=== PATIENT | female | born 1950 | race Caucasian/White ===

== ENCOUNTER 2017-01-31 18:58 | Emergency (ER) | payer MEDICARE ==
[2017-01-31] MEDS ORDERED: Tetan/Diph/Pertus SYR(Tdap)* 0.5 ML SYR(BOOSTRIX) use SYR IM ONE (19:24)
[2017-01-31 19:26] VITALS: BP 130/61
--- NOTE | 2017-01-31 19:35 | UC ---
Bite Injury/Animal HPI - HPI Summary HPI Summary: dog bite left ankle x 2 days ago the area is tender, swollen + white discharge this morning no fever, no chills - History of Current Complaint Chief Complaint: UCSkin Stated Complaint: DOG BITE-THURSDAY Time Seen by Provider: 01/31/17 19:20 Hx Obtained From: Patient Severity Currently: Moderate Severity Initially: Moderate Onset/Duration: Sudden Onset, Lasting Days - 2, Still Present Type of Bite: Pet - sisters dog Has Animal Been Immunized?: No Character: Abrasion/Laceration Aggravating Factor(s): Nothing Alleviating Factor(s): Nothing Associated Signs And Symptoms: Positive: Negative Animal Available for Observation: Yes Animal Control Notified: Yes - Allergies/Home Medications Allergies/Adverse Reactions: Allergies Allergy/AdvReac Type Severity Reaction Status Date / Time Penicillins Allergy Severe Swelling Verified 01/31/17 19:19 Sulfa Antibiotics Allergy Intermediate Rash And Verified 01/31/17 19:19 Itching Home Medications: Home Medications Hydrochlorothiazide TAB* [Hydrodiuril TAB*] 25 mg PO DAILY 01/31/17 [History Confirmed 01/31/17] Omeprazole CAP* [Prilosec CAP* 20 MG] 20 mg PO DAILY 01/31/17 [History Confirmed 01/31/17] Ranitidine HCl [Zantac] 300 mg PO DAILY 01/31/17 [History Confirmed 01/31/17] PMH/Surg Hx/FS Hx/Imm Hx Previously Healthy: Yes - Surgical History Surgical History: Yes Surgery Procedure, Year, and Place: HYSTERECTOMY 1977. RIGHT OVARY REMOVED 1981. HERNIATED CERVICAL DISC FUSSION. LEFT SHOULDER SURGERY. BREAST REDUCTION. RIGHT SHOULDER ROTATOR CUFF REPAIR - Family History Known Family History: Negative: Diabetes - Social History Alcohol Use: Rare Substance Use Type: None Smoking Status (MU): Former Smoker Type: Cigarettes When Did the Patient Quit Smoking/Using Tobacco: 37 YRS AGO - Immunization History Most Recent Influenza Vaccination: NOT THIS SEASON Most Recent Tetanus Shot: 2009 Review of Systems Constitutional: Negative Skin: Negative Eyes: Negative ENT: Negative Respiratory: Negative All Other Systems Reviewed And Are Negative: Yes Physical Exam Triage Information Reviewed: Yes Appearance: Well-Appearing, No Pain Distress, Well-Nourished Vital Signs: Initial Vital Signs Temp 98.5 F 01/31/17 19:05 Pulse 77 01/31/17 19:05 Resp 12 06/10/17 19:05 BP 130/61 01/31/17 19:05 Pulse Ox 98 01/31/17 19:05 Vital Signs Reviewed: Yes Eye Exam: Normal Eyes: Positive: Conjunctiva Clear ENT: Positive: Normal ENT inspection, Hearing grossly normal, Pharynx normal Neck exam: Normal Neck: Positive: Supple, Nontender, No Lymphadenopathy Respiratory: Positive: Chest non-tender, Lungs clear, Normal breath sounds Cardiovascular: Positive: RRR, No Murmur, Pulses Normal Skin: Positive: Other - dog bite site left ankle: + abrastion, swollen , tender , mild erythema, no discharge Bite Injury Course/Dx - Differential Dx/Diagnosis Provider Diagnoses: abration left ankle. dog bite left ankle Discharge - Discharge Plan Condition: Stable Disposition: HOME Prescriptions: Clindamycin Cap(NF) [Cleocin 300 mg Cap(NF)] 300 mg PO Q6H #28 cap Patient Education Materials: Animal Bite (ED) Referrals: Neisha Arambula PA [Primary Care Provider] - 7 Days
== END 2017-01-31 19:39 | disposition home or self-care (01) ==
LOC: UCCORT 18:58
DX: S90.512A Abrasion, left ankle, initial encounter (principal); S91.052A Open bite, left ankle, initial encounter; W54.0XXA Bitten by dog, initial encounter; Y92.9 Unspecified place or not applicable; Z87.891 Personal history of nicotine dependence; Z88.0 Allergy status to penicillin; Z88.2 Allergy status to sulfonamides
CPT/HCPCS: 90471; 90715; 99212; G0463

== ENCOUNTER 2017-07-11 09:24 | Emergency (ER) | payer MEDICARE ==
[2017-07-11 10:49] VITALS: BP 146/83
--- NOTE | 2017-07-11 11:04 | UC ---
Throat Pain/Nasal Pablo HPI - HPI Summary HPI Summary: 66 y/o female presents to the urgent care c/o sinus congestion, fever, B/L ear pain and dry cough for the past week. Pt reports she has been coughing a lot for the past 2 days that her left side of upper back hurts. Pt saw intertype operator about 3 weeks Dx with conjunctivitis. She has fever of 102F last Thursday, she took tylenol PO and it resolved. She is taking Mucinex PO to alleviate cough. sinus pain is 5/10 associated with CONLEY. Pt denies SOB, chest pain, N/V/D or abdominal pain. - History of Current Complaint Chief Complaint: UCRespiratory Stated Complaint: SINUS CONGESTION Time Seen by Provider: 07/11/17 11:01 Hx Obtained From: Patient Hx Last Menstrual Period: menopausal ?: No Onset/Duration: Gradual Onset, Lasting Weeks - 1 week, Still Present Severity: Moderate Pain Intensity: 5 Pain Scale Used: 0-10 Numeric Cough: Nonproductive Associated Signs & Symptoms: Positive: Sinus Discomfort, Nasal Discharge - green discharge, Fever - Epiglottits Risk Factors Epiglottis Risk Factors: Negative - Allergies/Home Medications Allergies/Adverse Reactions: Allergies Allergy/AdvReac Type Severity Reaction Status Date / Time Penicillins Allergy Severe Swelling Verified 07/11/17 10:49 Sulfa Antibiotics Allergy Intermediate Rash And Verified 07/11/17 10:49 Itching Home Medications: Home Medications Acetaminophen 1,000 mg PO Q4H PRN 07/11/17 [History Confirmed 07/11/17] Ydotaqdemagvo-Jjtsugllswjel-Bd [Mucinex Sinus-Max Pressur 5-325-200 mg] 1 tab PO Q4H PRN 07/11/17 [History Confirmed 07/11/17] PMH/Surg Hx/FS Hx/Imm Hx Previously Healthy: Yes GI/ History: Gastroesophageal Reflux - Surgical History Surgical History: Yes Surgery Procedure, Year, and Place: HYSTERECTOMY 1977. RIGHT OVARY REMOVED 1981. HERNIATED CERVICAL DISC FUSSION. LEFT SHOULDER SURGERY. BREAST REDUCTION. RIGHT SHOULDER ROTATOR CUFF REPAIR - Family History Known Family History: Positive: None - Pt denies FMHX Negative: Diabetes - Social History Occupation: Retired Lives: With Family Alcohol Use: Rare Substance Use Type: None Smoking Status (MU): Former Smoker Type: Cigarettes When Did the Patient Quit Smoking/Using Tobacco: 37 YRS AGO - Immunization History Most Recent Influenza Vaccination: NOT THIS SEASON Most Recent Tetanus Shot: 2009 Review of Systems Constitutional: Fever - at home Skin: Negative Eyes: Eye Redness - mild RT eye redness ENT: Ear Ache - B/L ear pain, Nasal Discharge, Sinus Congestion, Sinus Pain/ Tenderness Respiratory: Cough - dry Cardiovascular: Negative Gastrointestinal: Negative Genitourinary: Negative Motor: Negative Neurovascular: Negative Musculoskeletal: Negative Neurological: Headache Psychological: Negative Is Patient Immunocompromised?: No All Other Systems Reviewed And Are Negative: Yes Physical Exam Triage Information Reviewed: Yes Vital Signs: Initial Vital Signs Temp 97.8 F 07/11/17 10:41 Pulse 75 07/11/17 10:41 Resp 20 07/11/17 10:41 BP 146/83 07/11/17 10:41 Pulse Ox 98 07/11/17 10:41 - Additional Comments Vitals: reviewed General: Well developed, well-nourished female patient with NAD. Head and face: Normocephalic and atraumatic, Positive tenderness over the frontal and maxillary sinuses.. Eyes: PERRLA, EOMI x 2. Normal conjunctiva. No eye discharge. ENT: Ears and TM with normal limits. Nose: with yellowish discharge and erythematous mucosa. Pharynx with erythema, no exudate. Neck: Supple, no JVD, no carotid bruits and no lymphadenopathy. Lungs: clear, no rales, no rhonchi, no wheezes. CVS: RRR, S1 and S2 present no murmurs or gallops appreciated. Abdomen: soft nontender with positive bowel sounds. Extremities: no edema noted. Neuro: WNL. Skin: warm and dry Throat Pain/Nasal Course/Dx - Course Course Of Treatment: 66 y/o female presents to the urgent care c/o sinus congestion, fever, B/L ear pain and dry cough for the past week. Pt reports she has been coughing a lot for the past 2 days that her left side of upper back hurts. Pt saw intertype operator about 3 weeks Dx with conjunctivitis. She has fever of 102F last Thursday, she took tylenol PO and it resolved. She is taking Mucinex PO to alleviate cough. sinus pain is 5/10 associated with CONLEY. Pt denies SOB, chest pain, N/V/D or abdominal pain.Hx obtained. Pt with bacterial sinusitis on examination. Pt with 3 weeks of symptoms getting worse. Pt Rx Doxycycline PO and flonase nasal spray. Discharge instructions explained to Pt. Advised to Return to the clinic or PCP if symptoms do not improve.Pt understood and agreed with plan of care. - Differential Dx/Diagnosis Differential Diagnosis/HQI/PQRI: Influenza, Laryngitis, Otitis Media, Pharyngitis, Sinusitis, Tonsillitis, URI Provider Diagnoses: 1- Acute bacterial Sinusitis. 2-Cough. 3-Elevated BP w/o Hx of HTN Discharge - Discharge Plan Condition: Stable Disposition: HOME Prescriptions: DOXYcycline CAP(*) [DOXYcycline 100MG CAP(*)] 100 mg PO BID #20 cap Fluticasone NASAL SPRAY 50MCG* [Flonase NASAL SPRAY 50MCG*] 2 spray BOTH NARES DAILY #1 btl Patient Education Materials: Sinusitis (ED), Low Sodium Diet (ED) Referrals: Neisha Arambula PA [Primary Care Provider] - Additional Instructions: 1- Please increase fluid intake, eat well and rest. take full course of antibiotic to avoid resistance 2-Use Flonase as directed to help drain fluid. Also buy saline drops to clear sinuses 3-Continue taking Mucinex PO to alleviate sinus congestion and cough 4-Return to the clinic or PCP if symptoms do not improve for further management and treatment 5- Your BP is elevated today, please decrease salt in your diet and monitor BP at home, if it continues to be elevated f/u with your PCP for further management
== END 2017-07-11 11:32 | disposition home or self-care (01) ==
LOC: UCCORT 09:24
DX: J01.90 Acute sinusitis, unspecified (principal); R05 Cough; R03.0 Elevated blood-pressure reading, without diagnosis of hypertension; K21.9 Gastro-esophageal reflux disease without esophagitis; Z90.710 Acquired absence of both cervix and uterus; Z88.0 Allergy status to penicillin; Z88.2 Allergy status to sulfonamides; Z87.891 Personal history of nicotine dependence
CPT/HCPCS: 99212; G0463

== ENCOUNTER 2017-07-20 13:51 | Emergency (ER) | payer MEDICARE ==
[2017-07-20 14:44] VITALS: BP 118/63
--- NOTE | 2017-07-20 14:58 | UC ---
Throat Pain/Nasal Pablo HPI - HPI Summary HPI Summary: Pt presents with sinus symptoms. She tells me that she was seen here on 07/11 for sinus complaints and prescribed Doxycycline. She took 3 days of the antibiotic and each day had significant nausea and abdominal cramping. She stopped taking the anbx and her nausea and abdominal discomfort went away. Has been taking mucinex OTC with mild relief. She presents today with continued sinus congestion, pain, pressure, headache, chills, and fatigue. Denies fever, cough, SOB, chest pain, abdominal pain, N/V/D/C. - History of Current Complaint Chief Complaint: UCGeneralIllness Stated Complaint: RE-CK SINUS COMPLAINT Time Seen by Provider: 07/20/17 14:57 Hx Obtained From: Patient Hx Last Menstrual Period: menopausal ?: No Onset/Duration: Gradual Onset Severity: Moderate Pain Intensity: 4 Pain Scale Used: 0-10 Numeric Cough: Nonproductive - Allergies/Home Medications Allergies/Adverse Reactions: Allergies Allergy/AdvReac Type Severity Reaction Status Date / Time Penicillins Allergy Severe Swelling Verified 07/20/17 14:45 Sulfa Antibiotics Allergy Intermediate Rash And Verified 07/20/17 14:45 Itching PMH/Surg Hx/FS Hx/Imm Hx Previously Healthy: Yes GI/ History: Gastroesophageal Reflux - Surgical History Surgical History: Yes Surgery Procedure, Year, and Place: HYSTERECTOMY 1977. RIGHT OVARY REMOVED 1981. HERNIATED CERVICAL DISC FUSSION. LEFT SHOULDER SURGERY. BREAST REDUCTION. RIGHT SHOULDER ROTATOR CUFF REPAIR - Family History Known Family History: Positive: None - Pt denies FMHX Negative: Diabetes - Social History Occupation: Retired Lives: With Family Alcohol Use: Rare Substance Use Type: None Smoking Status (MU): Former Smoker Type: Cigarettes When Did the Patient Quit Smoking/Using Tobacco: 37 YRS AGO - Immunization History Most Recent Influenza Vaccination: NOT THIS SEASON Most Recent Tetanus Shot: 2009 Review of Systems Constitutional: Chills, Fatigue Skin: Negative Eyes: Negative ENT: Nasal Discharge, Sinus Congestion, Sinus Pain/Tenderness Respiratory: Negative Cardiovascular: Negative Gastrointestinal: Negative Genitourinary: Negative Neurological: Headache All Other Systems Reviewed And Are Negative: Yes Physical Exam Triage Information Reviewed: Yes Appearance: Well-Appearing, Well-Nourished Vital Signs: Initial Vital Signs Temp 98 F 07/20/17 14:37 Pulse 77 07/20/17 14:37 Resp 14 07/20/17 14:37 BP 118/63 07/20/17 14:37 Pulse Ox 99 07/20/17 14:37 Vital Signs Reviewed: Yes Eyes: Positive: Conjunctiva Clear. Negative: Conjunctiva Inflamed, Discharge ENT: Positive: Hearing grossly normal, Pharynx normal, Nasal congestion, Nasal drainage, TMs normal, Sinus tenderness, Uvula midline. Negative: Pharyngeal erythema, TM bulging, TM dull, TM red, Tonsillar swelling, Tonsillar exudate Neck: Positive: Supple, Nontender, No Lymphadenopathy Respiratory: Positive: Chest non-tender, Lungs clear, Normal breath sounds, No respiratory distress, No accessory muscle use Cardiovascular: Positive: RRR, No Murmur, Pulses Normal Neurological: Positive: Alert Psychological: Positive: Age Appropriate Behavior Skin: Negative: rashes Throat Pain/Nasal Course/Dx - Course Course Of Treatment: Sinusitis - given her allergies or adverse reactions to pcn , sulfa, and doxy..will try zpak. - Differential Dx/Diagnosis Differential Diagnosis/HQI/PQRI: Influenza, Mononucleosis, Sinusitis, URI Provider Diagnoses: sinusitis Discharge - Discharge Plan Condition: Stable Disposition: HOME Prescriptions: Azithromycin TAB* [Zithromax TAB (Z-YOLA) 250 mg #6 tabs] 2 tab PO .TODAY, THEN 1 DAILY #1 yola Patient Education Materials: Sinusitis (ED) Referrals: Neisha Arambula PA [Primary Care Provider] - Additional Instructions: If you develop a fever, SOB, chest pain, new or worsening symptoms - please call your PCP or go to the ED.
== END 2017-07-20 15:18 | disposition home or self-care (01) ==
LOC: UCCORT 13:51
DX: J32.9 Chronic sinusitis, unspecified (principal); Z88.0 Allergy status to penicillin; Z88.2 Allergy status to sulfonamides; K21.9 Gastro-esophageal reflux disease without esophagitis; Z87.891 Personal history of nicotine dependence
CPT/HCPCS: 99212; G0463

== ENCOUNTER 2017-11-12 08:39 | Emergency (ER) | payer MEDICARE ==
[2017-11-12 09:08] VITALS: BP 110/70
--- NOTE | 2017-11-12 09:34 | UC ---
FLU HPI - HPI Summary HPI Summary: 67 year old female with cough and cold . FEVER, SINUS AND CHEST CONGESTION WELL PRODUCTIVE COUGH, SORE THROAT, EAR ACHES AND CHILLS X8 DAYS. No CP or SOB . Has had left ear pressure and sinus pressure for the past few days. OTC meds not helping. has loss of voice last week as well and coughing a lot at this time. [ End ] - History of Current Complaint Chief Complaint: UCGeneralIllness Stated Complaint: FEVER,CHILLS,COUGH Time Seen by Provider: 11/12/17 09:09 Hx Obtained From: Patient Hx Last Menstrual Period: menopausal ?: No Onset/Duration: Gradual Onset Severity Currently: Mild Severity Initially: Moderate Pain Intensity: 2 Associated Signs & Symptoms: Positive: T Max - 102 yesterday Related Hx: Possible Flu/Infectious Exposure - Allergy/Home Medications Allergies/Adverse Reactions: Allergies Allergy/AdvReac Type Severity Reaction Status Date / Time Penicillins Allergy Swelling Verified 11/12/17 08:59 Sulfa (Sulfonamide Allergy Rash And Verified 11/12/17 08:59 Antibiotics) Itching Home Medications: Home Medications guaiFENesin [Mucinex] 11/12/17 [History] [id number] [Metronidazole] 11/12/17 [History] PMH/Surg Hx/FS Hx/Imm Hx Previously Healthy: Yes GI/ History: Gastroesophageal Reflux - Surgical History Surgical History: Yes Surgery Procedure, Year, and Place: HYSTERECTOMY 1977. RIGHT OVARY REMOVED 1981. HERNIATED CERVICAL DISC FUSSION. LEFT SHOULDER SURGERY. BREAST REDUCTION. RIGHT SHOULDER ROTATOR CUFF REPAIR - Family History Known Family History: Positive: None - Pt denies FMHX Negative: Diabetes - Social History Occupation: Retired Lives: With Family Alcohol Use: Rare Substance Use Type: None Smoking Status (MU): Former Smoker Type: Cigarettes When Did the Patient Quit Smoking/Using Tobacco: 37 YRS AGO - Immunization History Most Recent Influenza Vaccination: NOT THIS SEASON Most Recent Tetanus Shot: 2009 Review of Systems Constitutional: Fever, Chills, Fatigue ENT: Sore Throat, Ear Ache, Nasal Discharge, Sinus Congestion, Sinus Pain/ Tenderness Respiratory: Cough Is Patient Immunocompromised?: No All Other Systems Reviewed And Are Negative: Yes Physical Exam Triage Information Reviewed: Yes Appearance: Well-Appearing, No Pain Distress, Well-Nourished Vital Signs: Initial Vital Signs Temp 97.3 F 11/12/17 08:57 Pulse 81 11/12/17 08:57 Resp 16 11/12/17 08:57 BP 110/70 11/12/17 08:57 Pulse Ox 95 11/12/17 08:57 Vital Signs Reviewed: Yes Eye Exam: Normal ENT Exam: Normal ENT: Positive: Nasal drainage, TM dull - left, Sinus tenderness - left fronta and laxillary Neck exam: Normal Respiratory Exam: Normal Respiratory: Positive: Chest non-tender, No respiratory distress, No accessory muscle use, Wheezing - GINA expiratory mild. Negative: Crackles, Rhonchi Cardiovascular Exam: Normal Musculoskeletal Exam: Normal Neurological Exam: Normal Psychological Exam: Normal Skin Exam: Normal Flu Course/Dx - Course Course Of Treatment: amox allergy but per patient has tolerated cephalosrpoins - - treat primarily for sinusitis with cefdinir as her Sx progreviely worsening. she is aware this has potential of being viral at this time but desires antibiotics. requested z pack with refill but that is nto first line or second line . she is aware of SE of meds - Differential Dx/Diagnosis Differential Diagnosis/HQI/PQRI: Bronchitis, Influenza, Pneumonia, Upper Respiratory Infection Provider Diagnoses: sinusitis. bronchitis Discharge - Sign-Out/Discharge Documenting (check all that apply): Discharge - Discharge Plan Condition: Good Disposition: HOME Prescriptions: Benzonatate CAP* [Tessalon 100 MG CAP*] 100 mg PO TID PRN #20 cap PRN Reason: Cough Cefdinir [Cefdinir 300 MG CAP] 300 mg PO BID #20 capsule Patient Education Materials: Sinusitis (ED) Referrals: Neisha Arambula PA [Primary Care Provider] - 4 Days - Billing Disposition and Condition Condition: GOOD Disposition: HOME
== END 2017-11-12 09:52 | disposition home or self-care (01) ==
LOC: UCCORT 08:39
DX: J32.9 Chronic sinusitis, unspecified (principal); J40 Bronchitis, not specified as acute or chronic; Z88.0 Allergy status to penicillin; Z88.2 Allergy status to sulfonamides; Z87.891 Personal history of nicotine dependence
CPT/HCPCS: 87502; 99212; G0463

== ENCOUNTER 2019-02-16 13:51 | Emergency (ER) | payer MEDICARE ==
[2019-02-16 14:00] VITALS: BP 139/76
--- NOTE | 2019-02-16 14:36 | UC ---
HPI Febrile Illness - HPI Summary HPI Summary: 68-year-old female comes in with a chief complaint of fevers and fatigue. Patient reports fatigue for many months. About 3 days ago she started with fever and chills. She also has some chest congestion. She has some chest tightness in her lower chest with some palpitations. Patient reports she's had this chest tightness palpitations before she's had workups for it and she is not worried that this is anything with her heart at this time. Tylenol is helpful with the fevers. No calf pain or calf swelling. No abdominal pain. Has had joint and body aches. - History of Current Complaint Chief Complaint: UCChestPain Time Seen by Provider: 02/16/19 14:11 Hx Last Menstrual Period: menopausal Pain Intensity: 4 - Allergy/Home Medications Allergies/Adverse Reactions: Allergies Allergy/AdvReac Type Severity Reaction Status Date / Time Penicillins Allergy Swelling Verified 02/16/19 14:00 Sulfa (Sulfonamide Allergy Rash And Verified 02/16/19 14:00 Antibiotics) Itching Home Medications: Home Medications Fluticasone NASAL SPRAY 50MCG* [Flonase NASAL SPRAY 50MCG*] 2 spray BOTH NARES DAILY PRN 02/16/19 [History Confirmed 02/16/19] PMH/Surg Hx/FS Hx/Imm Hx Previously Healthy: Yes Cardiovascular History: Other - PVCs GI/ History: Gastroesophageal Reflux - Surgical History Surgical History: Yes Surgery Procedure, Year, and Place: HYSTERECTOMY 1977. RIGHT OVARY REMOVED 1981. HERNIATED CERVICAL DISC FUSSION. LEFT SHOULDER SURGERY. BREAST REDUCTION. RIGHT SHOULDER ROTATOR CUFF REPAIR - Family History Known Family History: Positive: None - Pt denies FMHX Negative: Diabetes - Social History Alcohol Use: Rare Substance Use Type: None Smoking Status (MU): Former Smoker Type: Cigarettes When Did the Patient Quit Smoking/Using Tobacco: 37 YRS AGO - Immunization History Most Recent Influenza Vaccination: NOT THIS SEASON Most Recent Tetanus Shot: 2009 Review of Systems All Other Systems Reviewed And Are Negative: Yes Constitutional: Positive: Fever, Chills, Fatigue Skin: Positive: Negative Eyes: Positive: Negative ENT: Negative: Sore Throat Respiratory: Positive: Other - see hpi Cardiovascular: Positive: Other - see hpi Gastrointestinal: Positive: Negative Motor: Positive: Negative Neurovascular: Positive: Negative Musculoskeletal: Positive: Arthralgia, Myalgia Neurological: Positive: Negative Psychological: Positive: Negative Is Patient Immunocompromised?: No Physical Exam Triage Information Reviewed: Yes Appearance: No Pain Distress, Well-Nourished, Ill-Appearing - mild Vital Signs: Initial Vital Signs Temp 99.2 F 02/16/19 13:53 Pulse 60 02/16/19 13:53 Resp 20 02/16/19 13:53 BP 139/76 02/16/19 13:53 Pulse Ox 98 02/16/19 13:53 Vital Signs Reviewed: Yes Eye Exam: Normal Eyes: Positive: Conjunctiva Clear ENT: Positive: Pharynx normal, TMs normal Neck: Positive: Supple Respiratory: Positive: Chest non-tender, Normal breath sounds, No respiratory distress, No accessory muscle use Cardiovascular: Positive: RRR Abdomen Description: Positive: Nontender, Soft Bowel Sounds: Positive: Present Musculoskeletal Exam: Normal Musculoskeletal: Positive: Strength Intact, ROM Intact, No Edema - No calf tenderness Neurological: Positive: Alert Psychological Exam: Normal Psychological: Positive: Normal Response To Family, Age Appropriate Behavior Skin Exam: Normal Diagnostics - EKG Cardiac Rate: NL - AT 1355 Cardiac Rhythm: Sinus: Normal - 82BPM Ectopy: PVCs ST Segment: Normal Course/Dx - Course Course Of Treatment: Patient Name: EDUARDO COBOS Medical Record#: [id number] Ordering Physician: Darion Bean MD Acct.#: [id number] : 1950 Age: 68 Sex: F Location: [facility] Exam Date: 02/16/19 1430 ADM Status: REG ER Order Information: CHEST PA LAT 2 S Accession Number: [id number] CPT: 23910 HISTORY: CHEST CONGESTION,FEVER COMPARISONS: October 22, 2016 VIEWS: 4: Frontal dual-energy and lateral views of the chest. FINDINGS: CARDIOMEDIASTINAL SILHOUETTE: The aorta is tortuous. The cardiomediastinal silhouette is otherwise unremarkable. ERIC: The eric are normal. PLEURA: The costophrenic angles are sharp. No pleural abnormalities are noted. LUNG PARENCHYMA: The lungs are clear. ABDOMEN: The upper abdomen is clear. There is no subphrenic gas. BONES AND SOFT TISSUES: The patient is status post anterior cervical fusion. OTHER: None. IMPRESSION: NO ACTIVE CARDIOPULMONARY DISEASE. <Electronically signed by Elver Ingram MD in OV> 02/16/19 9253 I discussed the chest x-ray and EKG with the patient and her . There is a PVC on the EKG. I do not see any ischemic changes on the EKG. Patient reports that she's had chest tightness and PVCs like this and has been evaluated multiple times before for these symptoms without any cardiac findings other than the PVCs. We discussed going to the emergency department for further evaluation of her chest tightness and fevers. Patient declined going to the emergency department at this time. CBC CMP and Lyme screen are all pending. Patient denies any urinary symptoms or any rashes. I discussed the other possibilities of fever of unknown origin. To include pericarditis or endocarditis and the need to get evaluation emergency department if not improving or worse. She agreed to go the emergency department if she did not improve her got worse. - Diagnoses Provider Diagnosis: Fever of unknown origin (FUO), Chest pain, PVC (premature ventricular contraction) Discharge - Sign-Out/Discharge Documenting (check all that apply): Patient Departure All imaging exams completed and their final reports reviewed: Yes - Discharge Plan Condition: Stable Disposition: HOME Prescriptions: Azithromyxin TREVON (NF) [Z-Trevon (Zithromax) 250 mg tabs #6] 2 tab PO .TODAY, THEN 1 DAILY #6 tab Patient Education Materials: Fever in Adults (ED), Chest Pain (ED), Premature Ventricular Contractions (ED) Referrals: Neisha Arambula PA [Primary Care Provider] - Additional Instructions: FOLLOW UP WITH YOUR DOCTOR. GO TO THE EMERGENCY DEPARTMENT IF YOUR CONDITION DOES NOT IMPROVE OR WORSENS; CHEST PAIN, SHORTNESS OF BREATH, YOU FEEL ILL OR ANY QUESTIONS OR CONCERNS. - Billing Disposition and Condition Condition: STABLE Disposition: Home
[2019-02-16 17:37] LABS: ABS Lymphocytes 1.2 10^3/ul (1.0-4.8); ABS Monocytes 0.6 10^3/ul (0-0.8); ABS Neutrophils 3.5 10^3/ul (1.5-7.7); Eosinophil % 0.1 %; Hematocrit 43 % (35-47); Hemoglobin 14.6 g/dL (12.0-16.0); Lymphocyte % 21.8 %; Mean Corpuscular HGB Conc 34 g/dL (31-36); Mean Corpuscular Hemoglobin 30 pg (27-31); Mean Corpuscular Volume 88 fL (80-97); Nucleated Red Blood Cells % 0.1; Platelet Count 195 10^3/uL (150-450); Red Blood Count 4.92 10^6 /uL (3.70-4.87); Red Cell Distribution Width 13 % (10-15); White Blood Count 5.3 10^3/uL (3.5-10.8)
[2019-02-16 17:44] LABS: Albumin 4.2 g/dL (3.2-5.2); Calcium 9.4 mg/dL (8.6-10.3); Potassium 4.4 mmol/L (3.5-5.0); Total Bilirubin 0.4 mg/dL (0.2-1.0)
[2019-02-16 17:50] LABS: Albumin/Globulin Ratio 1.4 (1-3); BUN/Creatinine Ratio 11.7 (8-20); EGFR African American 71.7 (>60); EGFR Non-African American 59.2 (>60); Globulin 2.9 g/dL (2-4); Total Protein 7.1 g/dL (6.4-8.9)
== END 2019-02-16 15:34 | disposition home or self-care (01) ==
LOC: UCCORT 13:51
DX: R50.9 Fever, unspecified (principal); R07.9 Chest pain, unspecified; I49.3 Ventricular premature depolarization; Z88.0 Allergy status to penicillin; Z88.2 Allergy status to sulfonamides; Z87.891 Personal history of nicotine dependence
CPT/HCPCS: 36415; 71046; 80053; 85025; 86618; 93005; 99212; G0463